=== PATIENT | male | born 1950 | race Caucasian/White ===

== ENCOUNTER 2023-08-11 16:54 | Emergency (ER) | payer MEDICARE ==
[2023-08-11 17:32] VITALS: RESP 18
[2023-08-11 18:01] LABS: Glucose,Whole Blood 102 mg/dL (70-110)
--- NOTE | 2023-08-11 18:10 | ED ---
General Adult HPI - General Chief complaint: Fall Stated complaint: Low Blood Sugar Time Seen by Provider: 08/11/23 17:35 Source: patient, EMS, RN notes reviewed, old records reviewed Mode of arrival: EMS - History of Present Illness Initial comments: This was a 73-year-old male who presents emergency Department after having fallen his head on a nightstand. Patient states it hurt quite a bit at the time but now he doesn't have much of a headache. Patient denies neck pain. Patient's sugar on scene was 50. Patient was not responding to EMS they gave him an amp of D50 and he became alert and oriented 3 upon arrival to the emergency department. Patient states he's had a little bit of a upper respiratory infection recently with a slight cough and congestion. Patient s tates his did have cold 3 days ago. Patient states she did not eat very much today not why he thinks his blood sugar was low. Patient denies chest pain difficulty breathing or shortness of breath per patient denies abdominal pain palpitations nausea vomiting diarrhea. Patient denies any back pain. - Related Data Home Medications Medication Instructions Recorded Confirmed Aspirin EC [Ecotrin Low Dose] 81 mg PO HS 08/11/23 08/11/23 Celecoxib [CeleBREX] 200 mg PO HS 08/11/23 08/11/23 Citalopram Hydrobromide [CeleXA] 20 mg PO HS 08/11/23 08/11/23 Gabapentin [Neurontin] 300 mg PO HS 08/11/23 08/11/23 Latanoprost [Latanoprost 0.005%] 1 drop BOTH EYES HS 08/11/23 08/11/23 Metoprolol Tartrate [Lopressor] 25 mg PO HS 08/11/23 08/11/23 Omeprazole 20 mg PO HS 08/11/23 08/11/23 Simvastatin [Zocor] 40 mg PO HS 08/11/23 08/11/23 Tamsulosin [Flomax] 0.4 mg PO HS 08/11/23 08/11/23 buPROPion HCL [Wellbutrin SR] 200 mg PO BID 08/11/23 08/11/23 gemfibroziL [Lopid] 600 mg PO AC-BID 08/11/23 08/11/23 glipiZIDE 5 mg PO DAILY 08/11/23 08/11/23 metFORMIN HCL 1,000 mg PO BID 08/11/23 08/11/23 Allergies Allergy/AdvReac Type Severity Reaction Status Date / Time No Known Allergies Allergy Verified 08/11/23 20:23 Review of Systems ROS Statement: Those systems with pertinent positive or pertinent negative responses have been documented in the HPI. ROS Other: All systems not noted in ROS Statement are negative. Past Medical History Past Medical History: Diabetes Mellitus General Exam - General Exam Comments Initial Comments: GENERAL: Patient is well-developed and well-nourished. Patient is nontoxic and well- hydrated and is in no acute distress. ENT: Neck is soft and supple. No significant lymphadenopathy is noted. Oropharynx is clear. Moist mucous membranes. Neck has full range of motion without eliciting any pain. EYES: The sclera were anicteric and conjunctiva were pink and moist. Extraocular movements were intact and pupils were equal round and reactive to light. Eyelids were unremarkable. PULMONARY: Unlabored respirations. Good breath sounds bilaterally. No audible rales rhonchi or wheezing was noted. CARDIOVASCULAR: There is a regular rate and rhythm without any murmurs gallops or rubs. ABDOMEN: Soft and nontender with normal bowel sounds. SKIN: Skin is clear with no lesions or rashes and otherwise unremarkable. NEUROLOGIC: Patient is alert and oriented x3. Cranial nerves II through XII are grossly intact. Motor and sensory are also intact. Normal speech, volume and content. Symmetrical smile. MUSCULOSKELETAL: Normal extremities with adequate strength and full range of motion. No lower extremity swelling or edema. No calf tenderness. LYMPHATICS: No significant lymphadenopathy is noted PSYCHIATRIC: Normal psychiatric evaluation. Course Vital Signs 08/11/23 17:21 Pulse Rate 62 Respiratory 18 Rate Blood Pressure 154/83 O2 Sat by Pulse 96 Oximetry Medical Decision Making - Medical Decision Making EKG was interpreted by myself shows a paced rhythm at 87 bpm NC interval 174 QRS is 152 QT interval 470 QTC is 451 Was pt. sent in by a medical professional or institution ([facility], BAG LOADER MACHINE OPERATOR, urgent care, hospital, or fpc...) When possible be specific @ -No Did you speak to anyone other than the patient for history (EMS, parent, family, police, friend...)? What history was obtained from this source @ -No Did you review nursing and triage notes (agree or disagree)? Why? @ -I reviewed and agree with nursing and triage notes Were old charts reviewed (outside hosp., previous admission, EMS record, old EKG , old radiological studies, urgent care reports/EKG's, fpc records)? Report findings @ -I reviewed prior charts from prior laboratory on this patient Differential Diagnosis (chest pain, altered mental status, abdominal pain women, abdominal pain men, vaginal bleeding, weakness, fever, dyspnea, syncope, headache, dizziness, GI bleed, back pain, seizure, CVA, palpatations, mental health, musculoskeletal)? @ -Differential Weakness: Hypoglycemia, shock, sepsis, hyponatremia, COVID, anemia, infection, NE, ETOH, adverse medicine reaction, overdose, stroke, this is not meant to be an all- inclusive list. EKG interpreted by me (3pts min.). @ -As above X-rays interpreted by me (1pt min.). @ -None done CT interpreted by me (1pt min.). @ -CT of the brain and C-spine showed no acute abnormality. U/S interpreted by me (1pt. min.). @ -None done What testing was considered but not performed or refused? (CT, X-rays, U/S, labs)? Why? @ -None What meds were considered but not given or refused? Why? @ -None Did you discuss the management of the patient with other professionals (professionals i.e. , PA, BAG LOADER MACHINE OPERATOR, lab, RT, psych nurse, secondary social studies teacher, rn first assist, teacher, motor equipment commanding officer, senior case manager)? Give summary @ -No Was smoking cessation discussed for >3mins.? @ -No Was critical care preformed (if so, how long)? @ -No Were there social determinants of health that impacted care today? How? (Homelessness, low income, unemployed, alcoholism, drug addiction, transportation, low edu. Level, literacy, decrease access to med. care, detention, rehab)? @ -No Was there de-escalation of care discussed even if they declined (Discuss DNR or withdrawal of care, Hospice)? DNR status @ -No What co-morbidities impacted this encounter? (DM, HTN, Smoking, COPD, CAD, Cancer, CVA, ARF, Chemo, Hep., AIDS, mental health diagnosis, sleep apnea, morbid obesity)? @ -None Was patient admitted / discharged? Hospital course, mention meds given and route, prescriptions, significant lab abnormalities, going to OR and other pertinent info. @ -She was up and the inability on his own emergency department he no longer was feeling that week. Patient was diagnosed with COVID. Undiagnosed new problem with uncertain prognosis? @ -No Drug Therapy requiring intensive monitoring for toxicity (Heparin, Nitro, In sulin, Cardizem)? @ -No Were any procedures done? @ -No Diagnosis/symptom? @ -COVID Acute, or Chronic, or Acute on Chronic? @ -Acute Uncomplicated (without systemic symptoms) or Complicated (systemic symptoms)? @ -Complicated Side effects of treatment? @ -No Exacerbation, Progression, or Severe Exacerbation? @ -No Poses a threat to life or bodily function? How? (Chest pain, USA, NE, pneumonia, PE, COPD, DKA, ARF, appy, cholecystitis, CVA, Diverticulitis, Homicidal, Suicidal, threat to staff... and all critical care pts) @ -No - Lab Data Result diagrams: 08/11/23 18:15 08/11/23 18:15 Lab Results 08/11/23 08/11/23 08/11/23 Range/Units 17:58 18:15 18:15 WBC 5.1 (3.8-10.6) k/uL RBC 4.63 (4.30-5.90) m/uL Hgb 13.1 (13.0-17.5) gm/dL Hct 39.3 (39.0-53.0) % MCV 84.9 (80.0-100.0) fL MCH 28.3 (25.0-35.0) pg MCHC 33.3 (31.0-37.0) g/dL RDW 14.8 (11.5-15.5) % Plt Count 252 (150-450) k/uL MPV 7.7 Neutrophils % 73 % Lymphocytes % 15 % Monocytes % 8 % Eosinophils % 1 % Basophils % 0 % Neutrophils # 3.7 (1.3-7.7) k/uL Lymphocytes # 0.8 L (1.0-4.8) k/uL Monocytes # 0.4 (0-1.0) k/uL Eosinophils # 0.1 (0-0.7) k/uL Basophils # 0.0 (0-0.2) k/uL Sodium 139 (137-145) mmol/L Potassium 4.9 (3.5-5.1) mmol/L Chloride 109 H (98-107) mmol/L Carbon Dioxide 18 L (22-30) mmol/L Anion Gap 12 mmol/L BUN 24 H (9-20) mg/dL Creatinine 0.90 (0.66-1.25) mg/dL Est GFR (CKD-EPI)AfAm >90 (>60 ml/min/1.73 sqM) Est GFR (CKD-EPI)NonAf 84 (>60 ml/min/1.73 sqM) Glucose 81 (74-99) mg/dL POC Glucose (mg/dL) 102 (70-110) mg/dL POC Glu [facility] ID Celine Vidal Calcium 9.3 (8.4-10.2) mg/dL Total Bilirubin 0.3 (0.2-1.3) mg/dL AST 98 H (17-59) U/L ALT 49 (4-49) U/L Alkaline Phosphatase 110 (38-126) U/L Total Protein 7.1 (6.3-8.2) g/dL Albumin 4.1 (3.5-5.0) g/dL Coronavirus (PCR) (Not Detectd) 08/11/23 Range/Units 19:42 WBC (3.8-10.6) k/uL RBC (4.30-5.90) m/uL Hgb (13.0-17.5) gm/dL Hct (39.0-53.0) % MCV (80.0-100.0) fL MCH (25.0-35.0) pg MCHC (31.0-37.0) g/dL RDW (11.5-15.5) % Plt Count (150-450) k/uL MPV Neutrophils % % Lymphocytes % % Monocytes % % Eosinophils % % Basophils % % Neutrophils # (1.3-7.7) k/uL Lymphocytes # (1.0-4.8) k/uL Monocytes # (0-1.0) k/uL Eosinophils # (0-0.7) k/uL Basophils # (0-0.2) k/uL Sodium (137-145) mmol/L Potassium (3.5-5.1) mmol/L Chloride (98-107) mmol/L Carbon Dioxide (22-30) mmol/L Anion Gap mmol/L BUN (9-20) mg/dL Creatinine (0.66-1.25) mg/dL Est GFR (CKD-EPI)AfAm (>60 ml/min/1.73 sqM) Est GFR (CKD-EPI)NonAf (>60 ml/min/1.73 sqM) Glucose (74-99) mg/dL POC Glucose (mg/dL) (70-110) mg/dL POC Glu [facility] ID Calcium (8.4-10.2) mg/dL Total Bilirubin (0.2-1.3) mg/dL AST (17-59) U/L ALT (4-49) U/L Alkaline Phosphatase (38-126) U/L Total Protein (6.3-8.2) g/dL Albumin (3.5-5.0) g/dL Coronavirus (PCR) Detected A (Not Detectd) Disposition Clinical Impression: Fall, COVID Disposition: HOME SELF-CARE Condition: Good Instructions (If sedation given, give patient instructions): Fall Prevention (E D), COVID-19 (Coronavirus Disease 2019) (ED) Additional Instructions: Patient should be taking Motrin and Tylenol for any fever. Patient should return if is any difficulty breathing or worsening symptoms or new symptoms Is patient prescribed a controlled substance at d/c from ED?: No Referrals: Nonstaff,Physician [REFERRING] - 1-2 days Time of Disposition: 20:59
[2023-08-11 18:31] LABS: Basophils % (A) 0 %; Eosinophils # (A) 0.1 k/uL (0-0.7); Eosinophils % (A) 1 %; HCT 39.3 % (39.0-53.0); HGB 13.1 gm/dL (13.0-17.5); Lymphocytes # (A) 0.8 k/uL (1.0-4.8); Lymphocytes % (A) 15 %; MCH 28.3 pg (25.0-35.0); MCHC 33.3 g/dL (31.0-37.0); MCV 84.9 fL (80.0-100.0); Mean Platelet Volume 7.7; Monocytes # (A) 0.4 k/uL (0-1.0); Monocytes % (A) 8 %; Neutrophils # (A) 3.7 k/uL (1.3-7.7); Neutrophils % (A) 73 %; Platelet Count 252 k/uL (150-450); RBC 4.63 m/uL (4.30-5.90); RDW 14.8 % (11.5-15.5); WBC 5.1 k/uL (3.8-10.6)
--- NOTE | 2023-08-11 18:58 | CT ---
EXAMINATION TYPE: CT brain marlyn gracia con DATE OF EXAM: 08/11/2023 COMPARISON: None HISTORY: Pt rolled out of bed and hit head on night stand, bump on rt side of forehead. CT DLP: 789.10 mGycm, Automated exposure control for dose reduction was used. CONTRAST: Patient injected with 0 mL of Isovue 300. CT of the brain is performed utilizing 3 mm thick sections through the posterior fossa and 3 mm thick sections through the remaining calvarium. Study is performed within 24 hours of arrival to the hospital. No abnormal hyperdensity is present to suggest an acute intracranial hemorrhage. No mass lesion is evident. No acute infarcts are evident. Ventricles and sulci are mildly prominent for the patient age. There is some soft tissue swelling ov er the left frontal region Paranasal sinuses and mastoid air cells within the [id number] are clear. IMPRESSIONS: 1. No acute intracranial process. Follow-up MRI can be performed as clinically indicated. 2. Age-related atrophy CT cervical spine. COMPARISON: None CT of the cervical spine is performed in the axial plane at 2 mm thick sections. Reconstructed image s in the coronal, and sagittal plane are reviewed on the computer. No acute fractures are evident. Vertebral body alignment is normal. Narrowing of disc height is present diffusely throughout the cervical spine Vertebral body heights are preserved. Some disc bulging and ligamentum calcifications present L3-4 with mild anterior thecal sac compressio n. No AP spinal canal stenosis is present Uncovertebral joint hypertrophy is contributing to foraminal narrowing C4-5 C5-6 and on the left at C 6-7. Post dense calcification in the expected region of the left carotid bifurcation IMPRESSION: 1. Degenerative cervical spine changes. 2. Degenerative uncovertebral joint changes causing foraminal narrowing mid cervical spine. 3. No acute osseous abnormality cervical spine
[2023-08-11 19:00] LABS: ALT 49 U/L (4-49); AST 98 U/L (17-59); African American GFR (CKD) >90 (>60 ml/min/1.73 sqM); Albumin 4.1 g/dL (3.5-5.0); Alkaline Phosphatase 110 U/L (38-126); Blood Urea Nitrogen 24 mg/dL (9-20); Calcium 9.3 mg/dL (8.4-10.2); Carbon Dioxide 18 mmol/L (22-30); Glucose 81 mg/dL (74-99); Non-African American GFR(CKD) 84 (>60 ml/min/1.73 sqM); Total Bilirubin 0.3 mg/dL (0.2-1.3); Total Protein 7.1 g/dL (6.3-8.2)
[2023-08-11 19:18] LABS: Anion Gap 12 mmol/L; Chloride 109 mmol/L (98-107); Potassium 4.9 mmol/L (3.5-5.1); Sodium 139 mmol/L (137-145)
[2023-08-11 21:51] VITALS: BP 145/89; PULSE 66; TEMP 98.9
== END 2023-08-11 21:45 | disposition home or self-care (01) ==
LOC: EC 16:54
DX: M51.16 Intervertebral disc disorders with radiculopathy, lumbar region (principal); U07.1 COVID-19; E11.9 Type 2 diabetes mellitus without complications; Z79.82 Long term (current) use of aspirin; Z79.84 Long term (current) use of oral hypoglycemic drugs; W06.XXXA Fall from bed, initial encounter
CPT/HCPCS: 36415; 70450; 72125; 80053; 85025; 87635; 93005; 99285